=== PATIENT | female | born 1965 | race Caucasian/White ===

== ENCOUNTER 2021-05-31 06:44 | Day surgery (SDC) | payer OTHER ==
[~2021-05-31] VITALS: Ht 160 cm; Wt 75.5 kg
[~2021-05-31 06:44] MED LIST: SODIUM CHLORIDE 0.9% 1,000 ML IV ONE
[2021-05-31] MEDS ORDERED: LIDOCAINE 4% 50 ML SOLUTION TP ONE (06:45)
[2021-05-31] MEDS ORDERED: LIDOCAINE 2% 5 ML JELLY TP ONE (06:45)
[2021-05-31] MEDS ORDERED: BENZOCAINE 20% 50 MCG/SPRAY 57 GM TP ONE (06:45)
[2021-05-31 07:32] LABS: COVID AG,FIA SOURCE NASOPHARYNGEAL
[2021-05-31] MEDS ORDERED: SODIUM CHLORIDE 0.9% 1,000 ML ONE (07:54)
[2021-05-31] MEDS ORDERED: FentaNYL CITRATE PF 100 MCG/2 ML VIAL ONE (08:04)
[2021-05-31] MEDS ORDERED: MIDAZOLAM HCL 5 MG/ML VIAL ONE (08:05)
[2021-05-31] MEDS ORDERED: CYCL10TA16 PO (08:38)
[2021-05-31] MEDS ORDERED: FLUO40CA PO (08:38)
[2021-05-31] MEDS ORDERED: PRED-729 PO (08:38)
[2021-05-31] MEDS ORDERED: FLUT16H NASAL (08:38)
[2021-05-31] MEDS ORDERED: ATOR10TA69 PO (08:38)
[2021-05-31] MEDS ORDERED: DEXT25CA PO (08:38)
[2021-05-31] MEDS ORDERED: GABA600T10 PO (08:38)
[2021-05-31] MEDS ORDERED: FAMO40TA7 PO (08:38)
[2021-05-31] MEDS ORDERED: OLAN5TAB77 PO (08:38)
[2021-05-31] MEDS ORDERED: MethylPREDNISolone SOD SUCC 125 MG/2 ML VIAL IVP ONE (09:45)
[2021-05-31] MEDS ORDERED: ALBUTEROL SULFATE 2.5 MG/0.5 ML NEB SOLUTION NEB ONE ×2 (10:44→10:45)
[2021-05-31] MEDS ORDERED: PROMETHAZINE HCL/CODEINE 6.25-10MG/5ML SYRUP UDCUP PO ONE (10:45)
[2021-05-31] MEDS ORDERED: MethylPREDNISolone SOD SUCC 125 MG/2 ML VIAL ONE (10:55)
[2021-05-31] MEDS ORDERED: OXYGEN THERAPY IH SCH (20:00)
== END 2021-05-31 13:35 | disposition home or self-care (01) ==
LOC: SURGERY 06:44
PROVIDERS: ATTEND Internal Medicine Critical Care Medicine
DX: J38.4 Edema of larynx (principal); B37.0 Candidal stomatitis; J98.8 Other specified respiratory disorders; J44.9 Chronic obstructive pulmonary disease, unspecified; M19.90 Unspecified osteoarthritis, unspecified site; F41.9 Anxiety disorder, unspecified; F90.9 Attention-deficit hyperactivity disorder, unspecified type; F32.9 Major depressive disorder, single episode, unspecified; E78.00 Pure hypercholesterolemia, unspecified; Z90.710 Acquired absence of both cervix and uterus; Z98.890 Other specified postprocedural states; Z72.89 Other problems related to lifestyle; Z79.899 Other long term (current) drug therapy; Z87.01 Personal history of pneumonia (recurrent)
CPT/HCPCS: 31623; 31624; 71045; 87015; 87070; 87101; 87206; 87220; 87426; 88112; 88184; 88185; 88312; C9803; J2250; J2930; J3010; J7030; J7613; Z7610